=== PATIENT | male | born 1950 | race Native Hawaiian/Other Pacific Islander ===

== ENCOUNTER → 2018-09-26 | Outpatient (CLI) | payer MEDICARE ==
[2018-09-26 12:38] LABS: Basophils # (A) 0.1 k/uL (0-0.2); Basophils % (A) 1 %; Eosinophils # (A) 0.3 k/uL (0-0.7); Eosinophils % (A) 5 %; HCT 46.4 % (39.0-53.0); HGB 15.3 gm/dL (13.0-17.5); Lymphocytes # (A) 2.1 k/uL (1.0-4.8); Lymphocytes % (A) 30 %; MCH 32.2 pg (25.0-35.0); MCV 97.3 fL (80.0-100.0); Mean Platelet Volume 6.9; Monocytes # (A) 0.4 k/uL (0-1.0); Monocytes % (A) 6 %; Neutrophils # (A) 3.8 k/uL (1.3-7.7); Neutrophils % (A) 55 %; Platelet Count 266 k/uL (150-450); RBC 4.77 m/uL (4.30-5.90); RDW 12.6 % (11.5-15.5); WBC 6.9 k/uL (3.8-10.6)
[2018-09-26 12:39] LABS: Calcium 10.1 mg/dL (8.4-10.2); Potassium 4.9 mmol/L (3.5-5.1)
== END ==
LOC: LABPAT 11:21
PROVIDERS: ATTEND Urology
DX: Z01.818 Encounter for other preprocedural examination (principal); Z01.812 Encounter for preprocedural laboratory examination; I10 Essential (primary) hypertension; C61 Malignant neoplasm of prostate; Z79.899 Other long term (current) drug therapy
CPT/HCPCS: 80048; 85025; 86850; 86900; 86901; 93005

== ENCOUNTER 2018-10-03 09:37 | Inpatient (IN) | payer MEDICARE ==
--- NOTE | 2018-10-03 01:49 | P.GSHP ---
History of Present Illness H&P Date: 10/03/18 Chief Complaint: Prostate cancer The patient is a 68-year-old white male evaluated by Dr. Cox for elevated PSA levels of 6.655 and 7.362. He has no family history of prostate cancer. He is relatively free of voiding symptoms. SHAAN revealed the prostate to be mildly enlarged but smooth. Prostate ultrasound revealed a prostate volume of 25 mL, with no echogenic abnormalities. 4 of 6 left-sided biopsies showed [place] 7 adenocarcinoma, but the right-sided biopsies were negative. The Prolaris score was favorable (2.8). Following a lengthy discussion of alternative treatment options, the patient has elected to undergo a right nerve sparing robotic- assisted laparoscopic prostatectomy with bilateral pelvic lymphadenectomy. - Cardiovascular Cardiovascular: Reports high blood pressure - Genitourinary (Male) Genitourinary: Denies erectile dysfunction Past Medical History Past Medical History: Cancer, Hypertension Additional Past Medical History / Comment(s): Current Prostate Cancer. History of Any Multi-Drug Resistant Organisms: None Reported Past Surgical History: No Surgical Hx Reported Additional Past Surgical History / Comment(s): Colonoscopy. Past Anesthesia/Blood Transfusion Reactions: No Reported Reaction Past Psychological History: No Psychological Hx Reported Smoking Status: Never smoker Past Alcohol Use History: None Reported Past Drug Use History: None Reported - Past Family History Mother Family Medical History: No Reported History Medications and Allergies Home Medications Medication Instructions Recorded Confirmed Type Lisinopril [Zestril] 10 mg PO QAM 10/01/18 10/01/18 History Multivitamins, Thera [Multivitamin 1 tab PO DAILY 10/01/18 10/01/18 History (formulary)] Allergies Allergy/AdvReac Type Severity Reaction Status Date / Time No Known Allergies Allergy Verified 10/01/18 11:16 Surgical - Exam - General well developed, well nourished, no distress - Respiratory normal respiratory effort, clear to auscultation - Cardiovascular Rhythm: regular Abnormal Heart Sounds: no systolic murmur, no diastolic murmur, no rub, no S3 Gallop, no S4 Gallop, no click, no other - Abdomen Abdomen: soft, non tender, no guarding, no rigid, no rebound Hernia: umbilical - Genitourinary normal penis with no external lesions, testicles non-tender - Psychiatric oriented to time, oriented to person, oriented to place, speech is normal, memory intact Assessment and Plan (1) Adenocarcinoma of prostate Status: Acute Code(s): C61 - MALIGNANT NEOPLASM OF PROSTATE SNOMED Code(s): 116408842 Plan: Right nerve sparing robotic-assisted laparoscopic prostatectomy (RALP) with bilateral pelvic lymphadenectomy. The procedure has been reviewed in detail with the patient and his . The anticipated perioperative course was reviewed. Potential risks were also discussed. These include anesthesia, bleeding, infection, bowel injury, neurovascular injury, lymphocele, vesical neck contracture, and urethral stricture. He understands the likelihood of postoperative stress urinary incontinence, and the fact that this may fail to resolve. He is also aware of the possibility of erectile dysfunction despite preservation of the right neurovascular bundle. The possible need for adjuvant therapy has been discussed.
[~2018-10-03 09:37] MED LIST: DEXAMETHASONE SOD PHOSPHATE 10 MG/ML 1 ML VIAL IV ONE; HEPARIN SODIUM,PORCINE 5,000 UNIT/ML 1 ML VIAL SQ ONE; LIDOCAINE 1% 20 ML VIAL (10MG/ML) FOR IV START INTRADERMA PRN; MIDAZOLAM 2 MG/2 ML VIAL IV PRN; ceFAZolin IN SWFI 2 GM/20 ML SYRINGE IVP ONE; fentaNYL (PF) 50 MCG/ML 2 ML AMP IV PRN
[2018-10-03] MEDS: LACTATED RINGERS 1,000 ML IV SCH (10:26)
[2018-10-03] MEDS ORDERED: LIDOCAINE 1% 20 ML VIAL (10MG/ML) FOR IV START INTRADERMA ONE (10:26)
[2018-10-03] MEDS ORDERED: ONDANSETRON 4 MG/2 ML VIAL IVP ONE (10:38)
[2018-10-03] MEDS ORDERED: ePHEDrine SULFATE/0.9% NACL/PF 50 MG/5 ML SYRINGE IV ONE (11:15)
[2018-10-03] MEDS ORDERED: fentaNYL (PF) 50 MCG/ML 2 ML AMP ONE (11:15)
[2018-10-03] MEDS ORDERED: LIDOCAINE 1% INJ 10MG/ML (20 ML MDV) ONE (11:15)
[2018-10-03] MEDS ORDERED: PROPOFOL 10 MG/ML 20 ML VIAL IV ONE (11:15)
[2018-10-03] MEDS ORDERED: PHENYLEPHRINE-0.9% NACL SYG 1 MG/10 ML SYRINGE ONE (11:15)
[2018-10-03] MEDS ORDERED: MIDAZOLAM 2 MG/2 ML VIAL ONE (11:15)
[2018-10-03] MEDS ORDERED: HYDROmorphone (PF) 1 MG/ML ONE (11:15)
[2018-10-03] MEDS ORDERED: ROCURONIUM BROMIDE 10 MG/ML 10 ML VIAL IV ONE (11:15)
[2018-10-03] MEDS ORDERED: NEOSTIGMINE 1 MG/ML 10 ML VIAL ONE (11:15)
[2018-10-03] MEDS ORDERED: KETOROLAC 30 MG/ML 1 ML VIAL ONE (11:15)
[2018-10-03] MEDS ORDERED: GLYCOPYRROLATE 0.2 MG/ML 2 ML VIAL ONE (11:15)
[2018-10-03] MEDS ORDERED: VECURONIUM 10 MG VIAL IV ONE (11:15)
[2018-10-03] MEDS ORDERED: BUPIVACAINE (PF) 0.25% 30 ML VIAL SQ ONE ×2 (12:07→14:38)
--- NOTE | 2018-10-03 14:43 | P.OP ---
Date of Procedure: 10/03/18 Preoperative Diagnosis: Adenocarcinoma of the prostate Postoperative Diagnosis: Same Procedure(s) Performed: Right nerve sparing robotic-assisted laparoscopic prostatectomy (RALP) with bilateral pelvic lymphadenectomy Anesthesia: ELISA Surgeon: Anupam Irwin Hospice Liaison #1: Ruel Stark Estimated Blood Loss (ml): 125 IV fluids (ml): 900 Pathology: other (Prostate, seminal vesicles, bilateral pelvic lymph nodes) Condition: stable Disposition: PACU Indications for Procedure: The patient is a 68-year-old white male evaluated for elevated PSA levels of 6.655 and 7.362. SHAAN revealed the prostate to be mildly enlarged but smooth. Prostate ultrasound revealed a prostate volume of 25 mL, with no echogenic abnormalities. 4 of 6 left-sided biopsies showed [place] 7 adenocarcinoma, but the right-sided biopsies were negative. The Prolaris score was favorable (2.8) . Following a lengthy discussion of alternative treatment options, the patient has elected to undergo a right nerve sparing robotic-assisted laparoscopic prostatectomy with bilateral pelvic lymphadenectomy. Operative Findings: No evidence of extraprostatic disease. Description of Procedure: The patient was taken in the operating room and placed in the dorsal lithotomy position, with his legs supported in Derek stirrups. He was carefully positioned on a beanbag for stability. The abdomen and external genitalia were prepped and draped sterilely. A Chavez catheter was inserted. The Veress needle was passed through the anterior abdominal wall immediately cephalad to the umbilicus, and insufflation was performed to a pressure of 20 mm Hg. Once insufflation was performed, the Veress needle was removed and a supraumbilical incision was made, through which a 12 mm camera port was placed. Under camera guidance, 3 8 mm robotic ports were placed, 2 on the left and one on the right. An additional 12 mm port was placed on the right lateral side for use as an retail loan originator assistant port. A 5 mm port was placed to the right of the camera port for suction. The patient was placed in Trendelenburg position, and docking was then performed to the da Chasity system utilizing a 4-arm approach. The abdomen was examined. The sigmoid colon was mobilized out of the pelvis. The peritoneum was incised lateral to the medial umbilical ligaments bilaterally , exposing the pubis. The peritoneum was then incised across the midline, allowing the bladder flap to be taken down. The endopelvic fascia was opened bilaterally, and muscular attachments from the urogenital diaphragm were swept away from the prostate. Bilateral pelvic lymphadenectomies were performed in the standard fashion. The peritoneal incisions were extended in a cephalad direction, and the vas deferens were divided bilaterally. Margins of dissection were the bifurcation of the iliac vessels proximally, the circumflex iliac vein distally, the external iliac artery laterally, and the obturator nerve medially. A combination of sharp and blunt dissection was used. Care was taken to avoid any neurovascular injury, and the use of monopolar electrocautery was avoided immediately adjacent to neurovascular structures. The lymphatic package was clipped distally. No enlarged lymph nodes were encountered. There were no complications. The vesical neck was incised transversely, down to the lumen. The Chavez catheter was brought out through the anterior vesical neck incision and was used for traction. The posterior aspect of the vesical neck was incised, such that the full-thickness of the vesical neck was divided. The anterior layer of the Denonvilliers fascia was incised, exposing the vas deferens. Each were isolated and divided. Next, each of the seminal vesicles were dissected away from adjacent tissues, and vascular attachments were cauterized and divided. The posterior leaf of Denonvilliers fascia was incised transversely, allowing entry into the plane between the prostate and rectum. With lateral spreading, this plane was developed down to the apex. This exposed the lateral vascular pedicles bilaterally. These were clipped and divided in an antegrade fashion, down to the apex. On the right side, the plane of dissection was immediately adjacent to the prostate to preserve the right neurovascular bundle. An attempt was not made to preserve the left neurovascular bundle, as the plane of dissection was further from the prostate. The remaining apical attachments were swept away from the prostate. The dorsal venous complex was incised, as well as periurethral tissue. At this point, only the urethra remained intact. This was transected immediately distal to the prostatic apex using cold scissors. The specimen was placed within a specimen bag. The dorsal venous complex was sutured using a V-Loc suture in a running fashion. The suture was passed through the periosteum of the pubis periurethral support. A second V-Loc suture was then used to place the Basim stitch, incorporating the rhabdosphincter and the edge of Denonvilliers fascia. This allowed the bladder to be taken down to the urethra, leaving the vesical neck immediately adjacent to the urethra. The vesicourethral anastomosis was then performed using a V-Loc suture in a running fashion. After completing the anastomosis, an 18-Palauan Chavez catheter was placed and approximately 150 mL of 0.9 normal saline were instilled into the bladder. No extravasation of irrigant from the vesicourethral anastomosis was noted. Hemostasis was noted at this time to be excellent. Tisseel was sprayed into the pelvis over the vascular pedicles, dorsal vein, and vesicourethral anastomosis. Surgicel was placed over the vascular pedicles. The patient was returned to the supine position. Undocking was performed, and the specimen bag sutures were passed through the camera port. After removing all the ports and allowing all of the CO2 to be released from the peritoneal cavity, the camera port incision was enlarged to allow removal of the surgical specimen. The fascial incision was extended inferiorly through the umbilical hernia defect. The fascia was then closed using 0 Vicryl suture in an interrupted [id number] fashion. Each of the skin incisions were then closed using 4-0 Monocryl suture in a subcuticular fashion. Marcaine was injected at each of the incision sites. Dermabond was applied to each incision. The Chavez catheter was connected to gravity drainage. All sponge and needle counts were correct. The patient tolerated the procedure well was taken to the recovery room in stable condition.
[2018-10-03] MEDS ORDERED: ONDANSETRON 4 MG/2 ML VIAL IVP PRN (14:44)
[2018-10-03] MEDS ORDERED: HYDROmorphone 1 MG/ML 1 ML SYRINGE IVP PRN (14:44)
[2018-10-03] MEDS ORDERED: KETOROLAC 30 MG/ML 1 ML VIAL IVP PRN (14:44)
[2018-10-03] MEDS ORDERED: LACTATED RINGERS 1,000 ML IV ONE (15:07)
[2018-10-03 16:49] VITALS: BMI 21.7
[2018-10-03] MEDS: DEXTROSE 5%-0.45% NACL 1,000 ML IV SCH ×2 (21:40→22:17)
[2018-10-03] MEDS: HEPARIN SODIUM,PORCINE 5,000 UNIT/ML 1 ML VIAL SQ SCH (22:16)
[2018-10-04] MEDS: LACTATED RINGERS 1,000 ML IV SCH (04:37)
[2018-10-04] MEDS: DEXTROSE 5%-0.45% NACL 1,000 ML IV SCH (05:40)
[2018-10-04 08:17] VITALS: BP 148/75; PULSE 79; RESP 16; TEMP 98.5
[2018-10-04] MEDS: HEPARIN SODIUM,PORCINE 5,000 UNIT/ML 1 ML VIAL SQ SCH (08:19)
[2018-10-04] MEDS ORDERED: LISINOPRIL 10 MG TAB PO SCH (09:00)
--- NOTE | 2018-10-04 11:13 | P.DS ---
Providers Date of admission: 10/03/18 09:38 Attending physician: Anupam Irwin Primary care physician: [facility] Course: The patient underwent a robotic-assisted radical prostatectomy 10/03/2018. He did well overnight. He ambulated. His pain is under control. His urine is clear. His abdomen soft. Wounds look good. He is ready for discharge home. He'll be given a prescription of [place]. He'll go home with a Chavez catheter. A follow-up in the office on 10/10/2018 for catheter removal. His condition is good. His vital signs are stable. He understands his postoperative instructions. Patient Condition at Discharge: Good Plan - Discharge Summary Discharge Rx Participant: Yes New Discharge Prescriptions: New Ciprofloxacin HCl [Cipro] 250 mg PO Q12HR #6 tablet Hydrocodone/Acetaminophen [[place] 5-325] 1 - 2 each PO Q4HR PRN #6 tab PRN Reason: Pain No Action Multivitamins, Thera [Multivitamin (formulary)] 1 tab PO DAILY Lisinopril [Zestril] 10 mg PO QAM Discharge Medication List Lisinopril [Zestril] 10 mg PO QAM 10/01/18 [History] Multivitamins, Thera [Multivitamin (formulary)] 1 tab PO DAILY 10/01/18 [History ] Ciprofloxacin HCl [Cipro] 250 mg PO Q12HR #6 tablet 10/04/18 [Rx] Hydrocodone/Acetaminophen [[place] 5-325] 1 - 2 each PO Q4HR PRN #6 tab 10/04/18 [ Rx] Follow up Appointment(s)/Referral(s): Anupam Irwin MD [STAFF PHYSICIAN] - 10/10/18 Activity/Diet/Wound Care/Special Instructions: Discharge home with Chavez catheter. Please provide patient with an overnight drainage bag as well as a urinary leg bag, and instruct him on the use of both. Okay to shower. Diet as tolerated. No lifting, driving, or strenuous activity. Begin taking ciprofloxacin one day prior to follow-up appointment. Please reassure patient that it is common to experience the following: Hematuria , urinary leakage around the catheter, abdominal wall bruising, and penoscrotal swelling. Discharge Disposition: HOME SELF-CARE
== END 2018-10-04 14:30 | disposition home or self-care (01) | DRG 708 ==
LOC: 2ORMAIN 09:38 → 4SSUR 16:05
PROVIDERS: ADMIT Urology; ATTEND Urology
PROC: 8E0W0CZ Robotic Assisted Procedure of Trunk Region, Open Approach (ICD-10-PCS; principal; 2018-10-03 11:25)
PROC: 0VT00ZZ Resection of Prostate, Open Approach (ICD-10-PCS; principal; 2018-10-03 11:25)
DX: C61 Malignant neoplasm of prostate (principal); I10 Essential (primary) hypertension; Z79.899 Other long term (current) drug therapy
CPT/HCPCS: 86850; 86900; 86901; 88307; 88309

== ENCOUNTER → 2018-11-05 | Outpatient (CLI) | payer MEDICARE | END | disposition home or self-care (01) | LOC: LABWHC1 12:53 | PROVIDERS: ATTEND Urology | DX: C61 Malignant neoplasm of prostate (principal) | CPT/HCPCS: 36415; 84153 ==

== ENCOUNTER → 2019-01-28 | Outpatient (CLI) | payer MEDICARE | END | disposition home or self-care (01) | LOC: LABWHC1 15:00 | PROVIDERS: ATTEND Urology | DX: C61 Malignant neoplasm of prostate (principal) | CPT/HCPCS: 36415; 84153 ==

== ENCOUNTER → 2019-02-23 | Outpatient (CLI) | payer MEDICARE ==
--- NOTE | 2019-02-24 09:50 | MR ---
MR kidney without contrast HISTORY: Abnormal ultrasound Multiplanar multisequence imaging through the kidneys. Correlation to ultrasound from outside institution dated 02/03/2019 There is motion on the exam. No evident hydronephrosis. T2 intense foci are associated with the left kidney likely represent cortical cysts are prominent calyces. Largest cystic focus at the lower pole measures 15 mm. There is no evident mass. Patient's calcification at the lower pole left kidney is no t seen definitively as on ultrasound. There is no retroperitoneal adenopathy. Aorta shows normal caliber. Adrenal glands are unremarkable. Liver and gallbladder, spleen and pancreas are within normal limits. There is no ascites. Lung bases are clear. Degenerative disc changes are noted in the visualized spine. IMPRESSION: No evident mass associated with the left kidney. Suspect some caliectasis, parapelvic cys ts.
== END | disposition home or self-care (01) ==
LOC: RADMRIMAIN 08:51
PROVIDERS: ATTEND Urology
DX: D41.02 Neoplasm of uncertain behavior of left kidney (principal)
CPT/HCPCS: 74181

== ENCOUNTER → 2019-05-05 | Outpatient (CLI) | payer MEDICARE | END | disposition home or self-care (01) | LOC: LABWHC1 12:08 | PROVIDERS: ATTEND Urology | DX: C61 Malignant neoplasm of prostate (principal) | CPT/HCPCS: 36415; 84153 ==

== ENCOUNTER → 2019-11-09 | Outpatient (CLI) | payer MEDICARE | END | disposition home or self-care (01) | LOC: LABWHC1 12:17 | PROVIDERS: ATTEND Urology | DX: C61 Malignant neoplasm of prostate (principal) | CPT/HCPCS: 36415; 84153 ==

== ENCOUNTER → 2020-12-01 | Outpatient (CLI) | payer MEDICARE | END | disposition home or self-care (01) | LOC: LABWHC1 12:32 | PROVIDERS: ATTEND Urology | DX: C61 Malignant neoplasm of prostate (principal) | CPT/HCPCS: 36415; 84153 ==

== ENCOUNTER → 2021-06-26 | Outpatient (CLI) | payer MEDICARE | END | disposition home or self-care (01) | LOC: LABWHC1 11:22 | PROVIDERS: ATTEND Urology | DX: C61 Malignant neoplasm of prostate (principal) | CPT/HCPCS: 36415; 84153 ==

== ENCOUNTER → 2022-06-27 | Outpatient (CLI) | payer MEDICARE | END | disposition home or self-care (01) | LOC: LABWHC1 11:30 | PROVIDERS: ATTEND Urology | DX: C61 Malignant neoplasm of prostate (principal) | CPT/HCPCS: 36415; 84153 ==

== ENCOUNTER → 2024-06-30 | Outpatient (CLI) | payer MEDICARE | END | disposition home or self-care (01) | LOC: LABWHC1 11:48 | PROVIDERS: ATTEND Urology | DX: C61 Malignant neoplasm of prostate (principal) | CPT/HCPCS: 36415; 84153 ==